=== PATIENT | male | born 1945 | race Caucasian/White ===

== ENCOUNTER 2021-05-18 04:31 | Emergency (ER) | payer MEDICARE ==
[~2021-05-18] VITALS: Ht 185.4 cm; Wt 83.9 kg
[~2021-05-18 04:31] MED LIST: ATENOLOL 25 MG25 M1 PO; ATENOLOL 25MG T25 MG; AVODART0.5 MG; AVODART0.5 MG PO; CENTRUM SILVER1 EAC2 PO; CIRCUMIN PO; CLARITIN5 MG; CREON DR 24,001 EACH PO; CRILL OIL; FISH OIL 1,0001 EAC5; FISH OIL 1,001000 M2 PO; FISH OIL 1,2001 EAC4 PO; FLOMAX; FLOMAX0.4 MG PO; MIRALAX17 GM PO; MULTIVITAMINS1 EAC7; ONDANSETRON HCL4 M2 PO; PERCOCET PO; PREDNISONE 10 M10 M1; RESVERATROL1 GM; RESVERATROL250 MG PO; SIMVASTATIN20 MG; TRANSDERM-SCO1 PATC1 TD; TUMERIC; TURMERIC500 MG PO; VENTOLIN HFA INH8 GM; ZOCOR20 MG PO; [UNRECOGNIZED DRUG - OTHER]
[2021-05-18 04:39] VITALS: BP 151/61
[2021-05-18] MEDS ORDERED: HUMALOG100 UNIT/1 SUBQ (04:46)
[2021-05-18] MEDS ORDERED: LANTUS SUBQ (04:46)
[2021-05-18] MEDS ORDERED: NORVASC10 MG PO (04:46)
[2021-05-18] MEDS ORDERED: PROSCAR 5MG TABL5 M1 PO (04:47)
== END 2021-05-18 05:59 | disposition home or self-care (01) ==
LOC: M.ERS 04:31
DX: T38.3X1A Poisoning by insulin and oral hypoglycemic [antidiabetic] drugs, accidental (unintentional), initial encounter (principal); E11.649 Type 2 diabetes mellitus with hypoglycemia without coma; I10 Essential (primary) hypertension; E78.00 Pure hypercholesterolemia, unspecified; Z79.4 Long term (current) use of insulin; Z79.899 Other long term (current) drug therapy; Y92.89 Other specified places as the place of occurrence of the external cause